=== PATIENT | female | born 1995 | race Caucasian/White ===

== ENCOUNTER 2016-10-31 04:02 | Inpatient (IN) | payer MEDICAID, OTHER, SELFPAY ==
[~2016-10-31] VITALS: Ht 160 cm; Wt 60.6 kg
[2016-10-31 04:39] LABS: MEAN CORPUSCULAR HEMOGLOBIN 29.8 pg (27.0-33.0); MEAN CORPUSCULAR HGB CONC 33.5 g/dl (32.0-36.5); RED CELL DISTRIBUTION WIDTH 12.7 % (11.5-14.5); WHITE BLOOD COUNT 5.3 K/mm3 (4.0-10.0)
[2016-10-31] MEDS ORDERED: NICOTINE 21MG/24HR 1 EA TRANSDERMAL TD ONE ×2 (04:45→17:15)
[2016-10-31 04:54] LABS: CONTROL LINE HCG INT CTR LINE PRESENT
[2016-10-31 05:00] LABS: METHADONE URINE NEGATIVE (NEGATIVE)
[2016-10-31 05:10] LABS: ALBUMIN 4.4 GM/DL (3.2-5.2); ALBUMIN/GLOBULIN RATIO 1.26 (1.00-1.93); ALKALINE PHOSPHATASE 94 U/L (45-117); ALT/SGPT 18 U/L (12-78); ANION GAP 8 MEQ/L (8-16); AST/SGOT 14 U/L (15-37); BILIRUBIN,DIRECT < 0.1 MG/DL (0.0-0.2); BILIRUBIN,TOTAL 0.3 MG/DL (0.2-1.0); BLOOD UREA NITROGEN 6 MG/DL (7-18); CALCIUM LEVEL 8.3 MG/DL (8.5-10.1); CARBON DIOXIDE LEVEL 26 MEQ/L (21-32); CHLORIDE LEVEL 111 MEQ/L (98-107); CREATININE FOR GFR 0.72 MG/DL (0.55-1.02); GLOMERULAR FILTRATION RATE > 60.0 (>60); GLUCOSE, FASTING 99 MG/DL (70-105); POTASSIUM SERUM 3.9 MEQ/L (3.5-5.1); SODIUM LEVEL 145 MEQ/L (136-145); TOTAL PROTEIN 7.9 GM/DL (6.4-8.2)
[2016-10-31] MEDS ORDERED: clonazePAM 0.5 MG TAB PO ONE (05:45)
[2016-10-31] MEDS ORDERED: ACETAMINOPHEN TAB 650MG DOSE (2X325MG) PO ONE (10:15)
[2016-11-01 13:17] VITALS: BP 126/80
[2016-11-01] MEDS ORDERED: MOM 30ML SUSPENSION UDC PO PRN (14:45)
[2016-11-01] MEDS ORDERED: MAALOX 30 ML SUSP *UDC PO PRN (14:45)
[2016-11-01] MEDS: NICOTINE 21MG/24HR 1 EA TRANSDERMAL TD SCH (18:12)
[2016-11-01] MEDS: traZODone 50 MG TAB PO PRN (22:55)
[2016-11-02 06:29] VITALS: BP 118/57
[2016-11-02] MEDS: NICOTINE 21MG/24HR 1 EA TRANSDERMAL TD SCH (09:10)
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
[2016-11-02] MEDS ORDERED: ESCITALOPRAM OXALATE 5MG TABLET (LEXAPRO) PO ONE (14:15)
[2016-11-02 18:00] VITALS: BP 134/84
[2016-11-02] MEDS: traZODone 50 MG TAB PO PRN (22:09)
--- NOTE | 2016-11-02 23:38 | HPE ---
DATE OF ADMISSION: 11/01/2016 HISTORY OF PRESENT ILLNESS: Please refer to psychiatric history and evaluation for further details on this admission. This examination and history is intended for medical issues, which may need treatment, followup, or consult on this 21-year-old female. PRIMARY CARE PROVIDER: None. ALLERGIES: No known allergies. SOCIAL HISTORY: She is single. EtOH (ethanol): She drinks frequently. Smokes one and a half packs of cigarettes per day. Recreational drug use: Marijuana frequently, benzodiazepines occasionally, and has used rarely cocaine and Ecstasy. PAST MEDICAL HISTORY: Anxiety and depression. PAST SURGICAL HISTORY: Tonsillectomy and adenoidectomy. HOME MEDICATIONS: None. FAMILY HISTORY: Noncontributory. LABORATORY STUDIES: CBC was normal. Sodium 145, potassium 3.9, chloride 111, CO2 of 26, BUN and creatinine 6 and 0.72, calcium 8.3. Urine was positive for benzodiazepines, cocaine, and cannabinoids. EtOH was 0.191. A 10-systems review was done and was unremarkable. Patient had no complaints. PHYSICAL EXAMINATION: A 21-year-old cooperative female in no acute distress. Height 63 inches, weigh 60.7 kg, body mass index (BMI) 23.7. Blood pressure 113/58, pulse 68, respirations 18, temperature 98.5. Patient is alert and oriented times three. Pupils equal and reactive to light. Extraocular movements (EOMs) intact. Corneae and sclerae clear. Conjunctivae were normal. No facial asymmetry. Pharynx, tongue, and gums pink and moist. Tongue is midline. Neck is supple without lymphadenopathy. No thyromegaly. No goiter. Carotids 2+ without bruit. Chest clear to auscultation without wheeze or retraction. Heart is regular. Abdomen benign. Bowel sounds positive. Genitourinary/rectal not done. Extremities showed equal strength, full range of motion. No cyanosis, clubbing, or edema. Peripheral pulses equal and palpable bilaterally. Skin was warm and dry. IMPRESSION AND PLAN: Psychiatric plan per psychiatry. Smoking cessation. Patch offered. No acute medical issues.
[2016-11-03 06:54] VITALS: BP 129/82
--- NOTE | 2016-11-03 08:03 | ECGEPIP ---
Stationary ECG Study [facility] - ED Test Date: 2016-10-31 Pat Name: NIRALI GLOVER Department: Room: [place] [address] Gender: F Employment Legal Assistant: rn : 1995 Requested By: Stevenson Loo Order Number: [id number] Reading MD: Poly Headley Measurements Intervals [place] Rate: 85 P: 41 NH: 181 QRS: 46 QRSD: 86 T: 36 QT: 360 QTc: 429 Interpretive Statements SINUS RHYTHM NO PRIOR FOR COMPARISON Electronically Signed On 11-03-2016 8:02:43 EDT by Poly Headley
[2016-11-03] MEDS: NICOTINE 21MG/24HR 1 EA TRANSDERMAL TD SCH (08:57)
[2016-11-03] MEDS ORDERED: ESCITALOPRAM OXALATE 5MG TABLET (LEXAPRO) PO SCH (09:00)
--- NOTE | 2016-11-03 10:53 | IPNPDOC ---
[facility] Progress Note Progress Note DATE OF SERVICE: 11/03/16 HISTORY: Patient is a 21-year-old female, who brought into the ER after a friend called to report that patient wanted to kill herself by jumping off a bridge. Patient states she was intoxicated at time of statement, also admitted to her ex-boyfriend that she had taken 6 Xanax four days prior with intent to kill herself. Patient has taken 2 doses of Lexapro, indicates she feels less anxious, reports current anxiety level 5/10, depression 5/10, denies suicidal and homicidal ideation, denies audiovisual hallucinations, denies urge to engage in self-injurious behavior. Patient is requesting discharge today stating , "this has been a real wake-up call for me and I feel I've learned a lot about coping," becomes tearful when informed she would not be discharged today but was able to maintain composure. Patient has been visible on unit, attending groups, and has been in behavioral control. Patient states she is sleeping better, notes trazodone is effective and denies medication side effects. Patient denies symptoms of craving or withdrawal. Patient has not needed to utilize hydroxyzine PRN for anxiety, verbalizes awareness that medication is available to her if needed. Patient denies challenges with appetite, concentration and focus, and notes energy level is stable. Patient denies physical pain and presents with no signs of acute distress at time of interaction. VITAL SIGNS: See below. NEW TEST RESULTS: No new results. PAST MEDICAL/SURGICAL HISTORY: Patient denies history of health challenges, denies history of seizure or head injury. Labs on admission indicate elevated chloride, low BUN, calcium, AST. HCG negative UDS positive for benzodiazepines, cocaine, cannabinoids, EtOH 0.191 EKG pending CURRENT MEDICATIONS: See below. MENTAL STATUS EXAMINATION: General appearance: Patient is a 21-year old female, who is pleasant and cooperative, easily engaged, makes good eye contact, is mildly disheveled dressed in hospital clothing, ambulates with steady gait, appears stated age. Speech: Of normal rate, rhythm, volume, spontaneous, coherent Thought processes: Linear, logical, goal-directed Thought content: Logical, rational, no paranoia noted. Abstract reasoning and computation: Appears intact. Description of associations: Intact. Description of abnormal or psychotic thoughts: Denies suicidal or homicidal ideation, denies auditory or visual hallucinations, does not appear to be responding to internal stimuli, does not endorse bizarre or paranoid ideation, denies preoccupation with violence or obsessions. Judgment: Poor. Insight: Limited, some improvement noted Orientation: A and O 3. Recent and remote memory: Appear intact. Attention span and concentration: Adequate. Fund of knowledge: Adequate. Mood: "I feel good, a lot better since I've been here, I feel ready to go home. " Patient appears less depressed, less anxious, no mood lability noted Affect: Blunted, remains tearful at times, congruent with mood. DIAGNOSES: Adjustment disorder with mixed anxiety and depressed mood, polysubstance use disorder, rule out MDD, rule out anxiety disorder unspecified , rule out substance-induced mood disorder ASSESSMENT:Patient is to be adjusting to unit, reports reduced anxiety with Lexapro and is today requesting dose increase in effort to further address symptoms of anxiety and depression. Patient is attending groups and tending to her ADLs, denies symptoms of craving or withdrawal, irritability, agitation, and mood lability. Patient is minimizing substance abuse and events which led to current hospitalization, indicates she feels she is ready for discharge today , is receptive to being told that she is still adjusting to medication and is being monitored for stabilization and safety. Patient denies suicidal and homicidal ideation and verbalizes awareness of how to access supportive services on the unit if needed. Will continue to monitor patient's response to medications and will monitor for side effects, will further evaluate patient safety, resolution of suicidal ideation, and discharge readiness. Patient reiterates today when prepared for discharge she would like to go to [place] to live with father, adds she will participate in outpatient psychotherapy and medication management services, has been strongly encouraged to consider participating in outpatient substance abuse treatment as well. MANAGEMENT PLAN: Increase Lexapro to 10 mg po q am. Continue trazodone 50 mg po hs PRN insomnia and hydroxyzine 25 mg po q 6 hours PRN anxiety Maintain safety precautions Patient to attend groups and participate in unit programming to develop coping strategies Engage patient in discharge planning process and arrange meeting with support system to ensure safe discharge planning when appropriate Patient to follow up with PCM upon discharge TIME SPENT: 35 minutes. Vital Signs Vital Signs Date Time Temp Pulse Resp B/P (MAP) Pulse Ox O2 Delivery O2 Flow Rate FiO2 11/03/16 06:54 98.2 69 16 129/82 (98) 11/01/16 13:17 98 Room Air Current Medications Current Medications Acetaminophen (Tylenol Tab) 650 mg Q6HP PRN PO HEADACHE or DISCOMFORT; Start at 14:45; Stop 12/01/16 at 14:44 Al Hydrox/Mg Hydrox/Simethicone (Mylanta) 30 ml Q4HP PRN PO HEARTBURN/ INDIGESTION; Start 11/01/16 at 14:45; Stop 12/01/16 at 14:44 Escitalopram Oxalate (Lexapro) 5 mg QAM PO Last administered on 11/03/16 08:57 ; Start 11/03/16 at 09:00; Stop 12/03/16 at 08:59 Home Med (Med Rec Complete!) ASDIRECTED XX ; Start 11/01/16 at 12:15; Stop at 12:18; Status DC Hydroxyzine HCl (Atarax) 25 mg Q6HP PRN PO ANXIETY; Start 11/02/16 at 14:15; Stop 12/02/16 at 14:14 Magnesium Hydroxide (Milk Of Magnesia) 30 ml DAILYPRN PRN PO CONSTIPATION; Start 11/01/16 at 14:45; Stop 12/01/16 at 14:44 Nicotine (Nicoderm Cq 21mg) 1 patch DAILY TD Last administered on 11/03/16 08: 57; Start 11/01/16 at 09:00; Stop 12/01/16 at 08:59 Trazodone HCl (Desyrel) 50 mg QHSP PRN PO INSOMNIA Last administered on 22:09; Start 11/01/16 at 14:45; Stop 12/01/16 at 14:44 Allergies Coded Allergies: No Known Allergies (Unverified , 10/31/16) Clarisa Hendrix November 03, 2016 10:53
[2016-11-03] MEDS ORDERED: ESCITALOPRAM OXALATE 5MG TABLET (LEXAPRO) PO ONE (12:00)
[2016-11-03] MEDS: hydrOXYzine 25 MG TAB PO PRN (12:07)
[2016-11-03 18:00] VITALS: BP 126/84
[2016-11-03] MEDS: traZODone 50 MG TAB PO PRN (22:44)
[2016-11-04 06:41] VITALS: BP 118/76
[2016-11-04] MEDS: ESCITALOPRAM OXALATE 10 MG TAB (LEXAPRO) PO SCH (08:30)
[2016-11-04] MEDS: NICOTINE 21MG/24HR 1 EA TRANSDERMAL TD SCH (08:30)
--- NOTE | 2016-11-04 09:00 | IPNPDOC ---
[facility] Progress Note Progress Note DATE OF SERVICE: 11/04/16 HISTORY: Patient is a 21-year-old female, who brought into the ER after a friend called to report that patient wanted to kill herself by jumping off a bridge. Patient states she was intoxicated at time of statement, also admitted to her ex-boyfriend that she had taken 6 Xanax four days prior with intent to kill herself. Patient indicates Lexapro is working well to improve mood and reduce symptoms of anxiety, Reports anxiety /10, depression /10, denies suicidal and homicidal ideation, denies audiovisual hallucinations, denies urge to engage in self-injurious behavior. Patient is requesting discharge tomorrow, however, indicates father is no longer planning to drive up from [place] and friend remains on vacation, and is unable to verbalize concrete discharge plan. Patient becomes tearful at times during interaction and minimizes substance abuse and recent suicide attempt. Patient remains visible on unit, has been attending groups, and has been in behavioral control. Patient states she is sleeping better, notes trazodone is effective and denies medication side effects. Patient denies symptoms of craving or withdrawal. Patient has been utilizing hydroxyzine PRN for anxiety and immediately. Patient indicates current medication regimen is effective and she denies medication side effects. Patient denies challenges with appetite, concentration and focus, and notes energy level is stable. Patient denies physical pain and presents with no signs of acute distress at time of interaction. Addendum: Phone call received from patient's father ([phone]) who indicated he will not be in the area until Tuesday, verified patient is returning to [place] with him for indefinite amount of time after discharge from inpatient setting, father is hoping patient will remain in [place] permanently. Father expressed serious concerns regarding patient's ability to be safe and remain substance free if discharged to home at this time. Father indicated patient has friend Emily who father states is positive influence and whom will return to [facility] on Tuesday. VITAL SIGNS: See below. NEW TEST RESULTS: No new results. PAST MEDICAL/SURGICAL HISTORY: Patient denies history of health challenges, denies history of seizure or head injury. Tonsillectomy adenoidectomy. Labs on admission indicate elevated chloride, low BUN, calcium, AST. HCG negative UDS positive for benzodiazepines, cocaine, cannabinoids, EtOH 0.191 10/31/16 EKG sinus rhythm CURRENT MEDICATIONS: See below. MENTAL STATUS EXAMINATION: General appearance: Patient is a 21-year old female, who is pleasant and cooperative, easily engaged, makes fair eye contact, is disheveled dressed in hospital clothing, ambulates with steady gait, appears stated age. Speech: Of normal rate, rhythm, volume, spontaneous, coherent Thought processes: Linear, logical, goal-directed Thought content: Logical, rational, no paranoia noted. Abstract reasoning and computation: Appears intact. Description of associations: Intact. Description of abnormal or psychotic thoughts: Denies suicidal or homicidal ideation, denies auditory or visual hallucinations, does not appear to be responding to internal stimuli, does not endorse bizarre or paranoid ideation, denies preoccupation with violence or obsessions. Judgment: Poor. Insight: Limited, some improvement noted Orientation: A and O 3. Recent and remote memory: Appear intact. Attention span and concentration: Adequate. Fund of knowledge: Adequate. Mood: "I feel fine." Patient continues to appear depressed and anxious, no mood lability noted except when discussing discharge Affect: Blunted, remains tearful at times, congruent with mood. DIAGNOSES: Adjustment disorder with mixed anxiety and depressed mood, polysubstance use disorder, rule out MDD, rule out anxiety disorder unspecified , rule out substance-induced mood disorder ASSESSMENT: Patient continues to adjust to unit, reports reduced in terms of anxiety and depression with Lexapro, states she is sleeping well with trazodone , and is using hydroxyzine PRN intermittently to address symptoms of anxiety when needed. Patient indicates medication regimen is effective and she denies medication side effects. Patient is attending groups and tending to her ADLs, denies symptoms of craving or withdrawal, irritability, agitation, and mood lability. Patient continues to minimize substance abuse and events which led to current hospitalization, indicates she feels she is ready for discharge today, is moderately receptive to being told that she is still adjusting to medication and is being monitored for stabilization and safety. Patient denies suicidal and homicidal ideation and verbalizes awareness of how to access supportive services on the unit if needed. Will continue to monitor patient's response to medications and will monitor for side effects, will further evaluate patient safety, resolution of suicidal ideation, and discharge readiness. Patient reiterates today when prepared for discharge she would like to go to [place] to live with father, informs health science writer today she will only be staying there for undetermined amount of time and then plans to return to [facility] she will participate in [facility] outpatient substance abuse treatment when she returns to the area. Patient is agreeable to following up with outpatient psychotherapy and medication management services in [place]. . MANAGEMENT PLAN: Continue Lexapro 10 mg po q am, trazodone 50 mg po hs PRN insomnia, and hydroxyzine 25 mg po q 6 hours PRN anxiety Maintain safety precautions Patient to attend groups and participate in unit programming to develop coping strategies Engage patient in discharge planning process and arrange meeting with support system to ensure safe discharge planning when appropriate Patient to follow up with PCM upon discharge TIME SPENT: 35 minutes. Vital Signs Vital Signs Date Time Temp Pulse Resp B/P (MAP) Pulse Ox O2 Delivery O2 Flow Rate FiO2 11/04/16 06:41 99.3 83 20 118/76 (90) 11/01/16 13:17 98 Room Air Current Medications Current Medications Acetaminophen (Tylenol Tab) 650 mg Q6HP PRN PO HEADACHE or DISCOMFORT; Start at 14:45; Stop 12/01/16 at 14:44 Al Hydrox/Mg Hydrox/Simethicone (Mylanta) 30 ml Q4HP PRN PO HEARTBURN/ INDIGESTION; Start 11/01/16 at 14:45; Stop 12/01/16 at 14:44 Escitalopram Oxalate (Lexapro) 5 mg QAM PO Last administered on 11/03/16 08:57 ; Start 11/03/16 at 09:00; Stop 11/03/16 at 11:54; Status DC Escitalopram Oxalate (Lexapro) 10 mg QAM PO Last administered on 11/04/16 08:30 ; Start 11/04/16 at 09:00; Stop 12/04/16 at 08:59 Home Med (Med Rec Complete!) ASDIRECTED XX ; Start 11/01/16 at 12:15; Stop at 12:18; Status DC Hydroxyzine HCl (Atarax) 25 mg Q6HP PRN PO ANXIETY Last administered on 12:07; Start 11/02/16 at 14:15; Stop 12/02/16 at 14:14 Magnesium Hydroxide (Milk Of Magnesia) 30 ml DAILYPRN PRN PO CONSTIPATION; Start 11/01/16 at 14:45; Stop 12/01/16 at 14:44 Nicotine (Nicoderm Cq 21mg) 1 patch DAILY TD Last administered on 11/04/16 08: 30; Start 11/01/16 at 09:00; Stop 12/01/16 at 08:59 Trazodone HCl (Desyrel) 50 mg QHSP PRN PO INSOMNIA Last administered on 22:44; Start 11/01/16 at 14:45; Stop 12/01/16 at 14:44 Allergies Coded Allergies: No Known Allergies (Unverified , 10/31/16) Clarisa Hendrix November 04, 2016 09:00
[2016-11-04] MEDS: hydrOXYzine 25 MG TAB PO PRN (12:52)
[2016-11-04 18:00] VITALS: BP 141/69
[2016-11-04] MEDS: traZODone 50 MG TAB PO PRN (22:56)
[2016-11-05 06:01] VITALS: BP 129/76
[2016-11-05] MEDS: ACETAMINOPHEN TAB 650MG DOSE (2X325MG) PO PRN (06:02)
[2016-11-05] MEDS: ESCITALOPRAM OXALATE 10 MG TAB (LEXAPRO) PO SCH (08:33)
[2016-11-05] MEDS: NICOTINE 21MG/24HR 1 EA TRANSDERMAL TD SCH (08:34)
--- NOTE | 2016-11-05 11:07 | IPNPDOC ---
[facility] Progress Note Progress Note DATE OF SERVICE: 11/05/16 HISTORY: Patient is a 21-year-old female, who brought into the ER after a friend called to report that patient wanted to kill herself by jumping off a bridge. Patient states she was intoxicated at time of statement, also admitted to her ex-boyfriend that she had taken 6 Xanax four days prior with intent to kill herself. Patient indicates Lexapro continues to help reduce symptoms of anxiety and depression, denies suicidal and homicidal ideation, denies audiovisual hallucinations, denies urge to engage in self-injurious behavior. Patient becomes tearful at times during interaction, continues to minimize substance abuse and recent suicide attempt. Patient remains visible on unit, has been attending groups, and has been in behavioral control. Patient states she is sleeping better, notes trazodone remains effective. Patient denies symptoms of craving or withdrawal. Patient has been utilizing hydroxyzine PRN for anxiety and with good effect reported. Patient indicates current medication regimen is effective and she denies medication side effects. Patient denies challenges with appetite, concentration and focus, and notes energy level is stable. Patient denies physical pain and presents with no signs of acute distress at time of interaction. Addendum: Phone call received from patient's father ([phone]) on 11/04/16 who indicated he will not be in the area until Tuesday, verified patient is returning to [place] with him for indefinite amount of time after discharge from inpatient setting, father is hoping patient will remain in [place] permanently. Father expressed serious concerns regarding patient's ability to be safe and remain substance free if discharged to home at this time. Father indicated patient has friend Emily who father states is positive influence and whom will return to [facility]note [facility] on Tuesday. VITAL SIGNS: See below. NEW TEST RESULTS: No new results. Elevated temp, patient is asymptomatic, nursing has been instructed to monitor and alert PA if persists PAST MEDICAL/SURGICAL HISTORY: Patient denies history of health challenges, denies history of seizure or head injury. Tonsillectomy adenoidectomy. Labs on admission indicate elevated chloride, low BUN, calcium, AST. HCG negative UDS positive for benzodiazepines, cocaine, cannabinoids, EtOH 0.191 10/31/16 EKG sinus rhythm CURRENT MEDICATIONS: See below. MENTAL STATUS EXAMINATION: General appearance: Patient is a 21-year old female, who is pleasant and cooperative, easily engaged, makes fair eye contact, is disheveled, dressed in hospital clothing, ambulates with steady gait, appears stated age. Speech: Of normal rate, rhythm, volume, spontaneous, coherent Thought processes: Linear, logical, goal-directed Thought content: Logical, rational, no paranoia noted. Abstract reasoning and computation: Appears intact. Description of associations: Intact. Description of abnormal or psychotic thoughts: Denies suicidal or homicidal ideation, denies auditory or visual hallucinations, does not appear to be responding to internal stimuli, does not endorse bizarre or paranoid ideation, denies preoccupation with violence or obsessions. Judgment: Poor Insight: Limited, some improvement noted Orientation: A and O 3. Recent and remote memory: Appear intact. Attention span and concentration: Adequate. Fund of knowledge: Adequate. Mood: "I feel fine, better." Patient continues to appear depressed, less anxious today, no mood lability noted except when discussing discharge Affect: Blunted, tearful X 1, congruent with mood. DIAGNOSES: Adjustment disorder with mixed anxiety and depressed mood, polysubstance use disorder, rule out MDD, rule out anxiety disorder unspecified , rule out substance-induced mood disorder ASSESSMENT: Patient continues to adjust to unit, reports reduced symptoms of anxiety and depression with Lexapro, states she is sleeping well with trazodone , and is using hydroxyzine PRN intermittently to address symptoms of anxiety when needed. Patient indicates medication regimen is effective and she denies medication side effects. Patient is attending groups, denies symptoms of craving or withdrawal, irritability, agitation, and mood lability. Patient continues to minimize substance abuse and events which led to current hospitalization, indicates she feels she is ready for discharge, is generally receptive to being told that she is still adjusting to medication and is being monitored for stabilization and safety. Patient denies suicidal and homicidal ideation and verbalizes awareness of how to access supportive services on the unit if needed. Will continue to monitor patient's response to medications and will monitor for side effects, will further evaluate patient safety, resolution of suicidal ideation, and discharge readiness. Patient reiterates today when prepared for discharge she would like to go to [place] to live with father, informs poem writer today she will be staying there for undetermined amount of time and then plans to return to [facility] she will participate in [facility] outpatient substance abuse treatment when she returns to the area. Patient is agreeable to following up with outpatient psychotherapy and medication management services in [place]. MANAGEMENT PLAN: Continue Lexapro 10 mg po q am, trazodone 50 mg po hs PRN insomnia, and hydroxyzine 25 mg po q 6 hours PRN anxiety Maintain safety precautions Patient to attend groups and participate in unit programming to develop coping strategies Engage patient in discharge planning process and arrange meeting with support system to ensure safe discharge planning when appropriate Patient to follow up with PCM upon discharge TIME SPENT: 35 minutes. Vital Signs Vital Signs Date Time Temp Pulse Resp B/P (MAP) Pulse Ox O2 Delivery O2 Flow Rate FiO2 11/05/16 06:01 101.3 88 18 129/76 (93) 11/01/16 13:17 98 Room Air Current Medications Current Medications Acetaminophen (Tylenol Tab) 650 mg Q6HP PRN PO HEADACHE or DISCOMFORT Last administered on 11/05/16 06:02; Start 11/01/16 at 14:45; Stop 12/01/16 at 14:44 Al Hydrox/Mg Hydrox/Simethicone (Mylanta) 30 ml Q4HP PRN PO HEARTBURN/ INDIGESTION; Start 11/01/16 at 14:45; Stop 12/01/16 at 14:44 Escitalopram Oxalate (Lexapro) 5 mg QAM PO Last administered on 11/03/16 08:57 ; Start 11/03/16 at 09:00; Stop 11/03/16 at 11:54; Status DC Escitalopram Oxalate (Lexapro) 10 mg QAM PO Last administered on 11/05/16 08:33 ; Start 11/04/16 at 09:00; Stop 12/04/16 at 08:59 Home Med (Med Rec Complete!) ASDIRECTED XX ; Start 11/01/16 at 12:15; Stop at 12:18; Status DC Hydroxyzine HCl (Atarax) 25 mg Q6HP PRN PO ANXIETY Last administered on 12:52; Start 11/02/16 at 14:15; Stop 12/02/16 at 14:14 Magnesium Hydroxide (Milk Of Magnesia) 30 ml DAILYPRN PRN PO CONSTIPATION; Start 11/01/16 at 14:45; Stop 12/01/16 at 14:44 Nicotine (Nicoderm Cq 21mg) 1 patch DAILY TD Last administered on 11/05/16 08: 34; Start 11/01/16 at 09:00; Stop 12/01/16 at 08:59 Trazodone HCl (Desyrel) 50 mg QHSP PRN PO INSOMNIA Last administered on 22:56; Start 11/01/16 at 14:45; Stop 12/01/16 at 14:44 Allergies Coded Allergies: No Known Allergies (Unverified , 10/31/16) Clarisa Hendrix November 05, 2016 11:07
[2016-11-05 18:00] VITALS: BP 129/80
[2016-11-05] MEDS: traZODone 50 MG TAB PO PRN (23:01)
[2016-11-06 06:02] VITALS: BP 130/81
[2016-11-06] MEDS: NICOTINE 21MG/24HR 1 EA TRANSDERMAL TD SCH (09:16)
[2016-11-06] MEDS: ESCITALOPRAM OXALATE 10 MG TAB (LEXAPRO) PO SCH (09:16)
[2016-11-06] MEDS ORDERED: SODIUM CHLORIDE NASAL 0.65% SPRAY BTL (OCEAN) PRN (10:45)
[2016-11-06] MEDS: LORATADINE 10 MG TAB PO SCH (10:49)
[2016-11-06] MEDS: hydrOXYzine 25 MG TAB PO PRN ×2 (16:12→23:42)
[2016-11-06 18:00] VITALS: BP 139/82
[2016-11-06] MEDS: ACETAMINOPHEN TAB 650MG DOSE (2X325MG) PO PRN (20:10)
[2016-11-06] MEDS: traZODone 50 MG TAB PO PRN (23:42)
[2016-11-07 06:23] VITALS: BP 109/52
[2016-11-07] MEDS: LORATADINE 10 MG TAB PO SCH (08:40)
[2016-11-07] MEDS: NICOTINE 21MG/24HR 1 EA TRANSDERMAL TD SCH (08:40)
[2016-11-07] MEDS: ESCITALOPRAM OXALATE 10 MG TAB (LEXAPRO) PO SCH (08:40)
[2016-11-07] MEDS: ACETAMINOPHEN TAB 650MG DOSE (2X325MG) PO PRN (17:17)
[2016-11-07 18:00] VITALS: BP 125/72
[2016-11-07] MEDS: hydrOXYzine 25 MG TAB PO PRN (19:36)
[2016-11-07] MEDS ORDERED: hydrOXYzine 25 MG TAB PO ONE (21:00)
[2016-11-07] MEDS: traZODone 50 MG TAB PO PRN (22:56)
[2016-11-08 07:00] VITALS: BP 101/69
[2016-11-08] MEDS: NICOTINE 21MG/24HR 1 EA TRANSDERMAL TD SCH (09:00)
[2016-11-08] MEDS: ESCITALOPRAM OXALATE 10 MG TAB (LEXAPRO) PO SCH (10:48)
[2016-11-08] MEDS: LORATADINE 10 MG TAB PO SCH (10:48)
[2016-11-08] MEDS ORDERED: HYDR25T PO (12:00)
[2016-11-08] MEDS ORDERED: ESCI10TA2 PO (12:00)
[2016-11-08] MEDS ORDERED: NICOTINE POLACRILEX 2 MG GUM PO ONE (12:00)
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
[2016-11-09] MEDS ORDERED: ESCI10TA2 PO ×2 (15:49→16:58)
[2016-11-09] MEDS ORDERED: HYDR25T PO ×2 (15:49→16:58)
[2016-11-10] MEDS ORDERED: LEXA1TAB PO (11:32)
[2016-11-10] MEDS ORDERED: HYDR25T PO (11:35)
== END 2016-11-08 16:20 | disposition home or self-care (01) | DRG 754 ==
LOC: M ED 05:03 → M ED INP 11-01 11:57 → M PSY 11-01 13:09
PROVIDERS: ADMIT Psychiatry & Neurology Child & Adolescent Psychiatry; ATTEND Psychiatry & Neurology Psychiatry
DX: F32.9 Major depressive disorder, single episode, unspecified (principal); F60.89 Other specific personality disorders; F17.210 Nicotine dependence, cigarettes, uncomplicated; F12.10 Cannabis abuse, uncomplicated